=== PATIENT | female | born 1930 | race Caucasian/White ===

== ENCOUNTER 2016-10-25 09:28 | Emergency (ER) | payer OTHER ==
[~2016-10-25 09:28] MED LIST: CEL100 PO; CEL20 PO; ECO81 PO; HYZAAR PO; LEFLUNOMIDE PO; NOR5 PO; OSC PO; SYN15 PO; ZOC20 PO
[2016-10-25 11:14] LABS: BASOPHIL % 0.4 % (0-2); PLATELET COUNT 213 x10^3mcL (130-400)
[2016-10-25 11:35] LABS: ALBUMIN 3.5 g/dL (3.4-5.0); ALKALINE PHOSPHATASE 77 U/L (46-116); ALT/SGPT 25 U/L (14-59); AMYLASE 101 U/L (25-115); AST/SGOT 23 U/L (15-37); BILIRUBIN TOTAL 0.49 mg/dL (0.20-1.00); CALCIUM 8.7 mg/dL (8.5-10.1); CARBON DIOXIDE 32.7 mmol/L (21-32); CHLORIDE SERUM 104 mmol/L (98-107); CREATININE SERUM 1.1 mg/dL (0.6-1.0); LIPASE 138 IU/L (73-393); POTASSIUM SERUM 4.5 mmol/L (3.5-5.1); SODIUM SERUM 143 mmol/L (136-145); T4(THYROXINE) 9.1 ug/dL (4.7-13.3); TOTAL PROTEIN, SERUM 7.3 g/dL (6.4-8.2)
[2016-10-25 11:36] LABS: CHOLESTEROL 114 mg/dL (<200)
[2016-10-25 11:38] LABS: GLUCOSE SERUM 55 mg/dL (74-106)
[2016-10-25 11:49] LABS: UA SPECIFIC GRAVITY 1.015 (1.005-1.035); microscopic required? YES; urine erythrocyte NEGATIVE (NEGATIVE)
[2016-10-25 12:07] LABS: AMPHETAMINE QUAL UR NONE DETECTED (NEG <=1000)
[2016-10-25 13:23] VITALS: BP 118/76
== END 2016-10-25 13:23 | disposition home or self-care (01) ==
LOC: ED 09:28
PROVIDERS: Emergency Medicine
DX: E11.621 Type 2 diabetes mellitus with foot ulcer (principal); L97.519 Non-pressure chronic ulcer of other part of right foot with unspecified severity; E11.22 Type 2 diabetes mellitus with diabetic chronic kidney disease; I12.9 Hypertensive chronic kidney disease with stage 1 through stage 4 chronic kidney disease, or unspecified chronic kidney disease; N18.3 Chronic kidney disease, stage 3 (moderate); E78.00 Pure hypercholesterolemia, unspecified; I25.10 Atherosclerotic heart disease of native coronary artery without angina pectoris; K42.9 Umbilical hernia without obstruction or gangrene; Z88.8 Allergy status to other drugs, medicaments and biological substances
CPT/HCPCS: 80307; 82962; 83880; 90715; Q0092

== ENCOUNTER → 2016-11-21 | Outpatient (CLI) | payer OTHER ==
[2016-11-21 08:14] LABS: BASOPHIL % 0.3 % (0-2); PLATELET COUNT 265 x10^3mcL (130-400)
[2016-11-21 08:18] LABS: ALKALINE PHOSPHATASE 69 U/L (46-116); ALT/SGPT 22 U/L (14-59); AST/SGOT 28 U/L (15-37); BILIRUBIN TOTAL 0.48 mg/dL (0.20-1.00); CALCIUM 8.6 mg/dL (8.5-10.1); CARBON DIOXIDE 24.8 mmol/L (21-32); CHLORIDE SERUM 102 mmol/L (98-107); CREATININE SERUM 0.9 mg/dL (0.6-1.0); GLUCOSE SERUM 89 mg/dL (74-106); PHOSPHOROUS 3.5 mg/dL (2.5-4.9); POTASSIUM SERUM 3.4 mmol/L (3.5-5.1); SODIUM SERUM 138 mmol/L (136-145); TOTAL PROTEIN, SERUM 7.3 g/dL (6.4-8.2)
[2016-11-21 08:34] LABS: ALBUMIN 3.3 g/dL (3.4-5.0); CREATININE UR 82.3 mg/dL
== END | disposition home or self-care (01) ==
LOC: LB 07:15
PROVIDERS: Internal Medicine Nephrology
DX: I12.9 Hypertensive chronic kidney disease with stage 1 through stage 4 chronic kidney disease, or unspecified chronic kidney disease (principal); N18.3 Chronic kidney disease, stage 3 (moderate); E11.9 Type 2 diabetes mellitus without complications; E78.5 Hyperlipidemia, unspecified; E03.9 Hypothyroidism, unspecified
CPT/HCPCS: 83970

== ENCOUNTER → 2017-02-14 | Outpatient (CLI) | payer OTHER ==
[2017-02-14 08:09] LABS: PLATELET COUNT 230 x10^3mcL (130-400)
[2017-02-14 08:17] LABS: RED CELL DISTRIBUTION WIDTH 16.6 % (11.5-14.5)
[2017-02-14 08:39] LABS: ALBUMIN 3.4 g/dL (3.4-5.0); ALKALINE PHOSPHATASE 91 U/L (46-116); ALT/SGPT 32 U/L (14-59); AST/SGOT 34 U/L (15-37); BILIRUBIN TOTAL 0.23 mg/dL (0.20-1.00); CALCIUM 8.3 mg/dL (8.5-10.1); CARBON DIOXIDE 28.2 mmol/L (21-32); CHLORIDE SERUM 104 mmol/L (98-107); GLUCOSE SERUM 77 mg/dL (74-106); POTASSIUM SERUM 4.1 mmol/L (3.5-5.1); SODIUM SERUM 140 mmol/L (136-145); TOTAL PROTEIN, SERUM 7.5 g/dL (6.4-8.2)
[2017-02-14 09:01] LABS: UA SPECIFIC GRAVITY 1.025 (1.005-1.035); microscopic required? YES
[2017-02-14 09:02] LABS: urine erythrocyte NEGATIVE (NEGATIVE)
== END | disposition home or self-care (01) ==
LOC: LB 07:15
DX: I12.9 Hypertensive chronic kidney disease with stage 1 through stage 4 chronic kidney disease, or unspecified chronic kidney disease (principal); N18.3 Chronic kidney disease, stage 3 (moderate); E11.9 Type 2 diabetes mellitus without complications; E78.5 Hyperlipidemia, unspecified; E03.9 Hypothyroidism, unspecified

== ENCOUNTER → 2017-05-09 | Outpatient (CLI) | payer OTHER ==
[2017-05-09 08:19] LABS: BASOPHIL % 0.5 % (0-2); PLATELET COUNT 266 x10^3mcL (130-400)
[2017-05-09 08:21] LABS: RED CELL DISTRIBUTION WIDTH 15.5 % (11.5-14.5)
[2017-05-09 08:22] LABS: ALBUMIN 3.7 g/dL (3.4-5.0); ALKALINE PHOSPHATASE 69 U/L (46-116); ALT/SGPT 26 U/L (14-59); AST/SGOT 25 U/L (15-37); BILIRUBIN TOTAL 0.74 mg/dL (0.20-1.00); CALCIUM 8.8 mg/dL (8.5-10.1); CARBON DIOXIDE 32.4 mmol/L (21-32); CHLORIDE SERUM 101 mmol/L (98-107); CREATININE SERUM 0.9 mg/dL (0.6-1.0); GLUCOSE SERUM 68 mg/dL (74-106); POTASSIUM SERUM 3.6 mmol/L (3.5-5.1); SODIUM SERUM 138 mmol/L (136-145)
[2017-05-09 08:23] LABS: TOTAL PROTEIN, SERUM 8.3 g/dL (6.4-8.2)
[2017-05-09 08:40] LABS: UA SPECIFIC GRAVITY 1.015 (1.005-1.035); microscopic required? YES; urine erythrocyte TRACE (NEGATIVE)
== END | disposition home or self-care (01) ==
LOC: LB 07:11
DX: I12.9 Hypertensive chronic kidney disease with stage 1 through stage 4 chronic kidney disease, or unspecified chronic kidney disease (principal); N18.3 Chronic kidney disease, stage 3 (moderate); E11.9 Type 2 diabetes mellitus without complications; E78.5 Hyperlipidemia, unspecified; E03.9 Hypothyroidism, unspecified

== ENCOUNTER → 2017-08-02 | Outpatient (CLI) | payer OTHER ==
[2017-08-02 08:18] LABS: BASOPHIL % 0.4 % (0-2); PLATELET COUNT 297 x10^3mcL (130-400)
[2017-08-02 08:20] LABS: RED CELL DISTRIBUTION WIDTH 15.1 % (11.5-14.5)
[2017-08-02 11:39] LABS: ALBUMIN 3.8 g/dL (3.4-5.0); ALKALINE PHOSPHATASE 66 U/L (46-116); ALT/SGPT 32 U/L (14-59); AST/SGOT 26 U/L (15-37); BILIRUBIN TOTAL 0.57 mg/dL (0.20-1.00); CARBON DIOXIDE 31.5 mmol/L (21-32); CHLORIDE SERUM 102 mmol/L (98-107); CHOLESTEROL 142 mg/dL (<200); CREATININE SERUM 0.9 mg/dL (0.6-1.0); GLUCOSE SERUM 78 mg/dL (74-106); POTASSIUM SERUM 4.1 mmol/L (3.5-5.1); SODIUM SERUM 140 mmol/L (136-145); TOTAL PROTEIN, SERUM 8.2 g/dL (6.4-8.2); TRIGLYCERIDES 88 mg/dL (<150)
[2017-08-02 11:43] LABS: CHOLESTEROL/HDL RATIO 2.1; HDL CHOLESTEROL 69 mg/dL (40-60)
[2017-08-03 17:21] LABS: microalbumin:creatinine ratio 11.8 (0.0-30.0)
== END | disposition home or self-care (01) ==
LOC: LB 07:39
PROVIDERS: Internal Medicine Nephrology
DX: I12.9 Hypertensive chronic kidney disease with stage 1 through stage 4 chronic kidney disease, or unspecified chronic kidney disease (principal); N18.3 Chronic kidney disease, stage 3 (moderate); E78.5 Hyperlipidemia, unspecified; E03.9 Hypothyroidism, unspecified; E11.9 Type 2 diabetes mellitus without complications

== ENCOUNTER → 2017-10-03 | Outpatient (CLI) | payer OTHER ==
[2017-10-03 08:03] LABS: UA SPECIFIC GRAVITY 1.015 (1.005-1.035); microscopic required? YES; urine erythrocyte TRACE (NEGATIVE)
[2017-10-03 08:05] LABS: BASOPHIL % 0.5 % (0-2); PLATELET COUNT 306 x10^3mcL (130-400)
[2017-10-03 08:07] LABS: RED CELL DISTRIBUTION WIDTH 15.1 % (11.5-14.5)
[2017-10-03 08:32] LABS: ALBUMIN 3.4 g/dL (3.4-5.0); ALKALINE PHOSPHATASE 58 U/L (46-116); ALT/SGPT 23 U/L (14-59); AST/SGOT 23 U/L (15-37); BILIRUBIN TOTAL 0.5 mg/dL (0.20-1.00); CALCIUM 8.1 mg/dL (8.5-10.1); CARBON DIOXIDE 29.9 mmol/L (21-32); CHLORIDE SERUM 103 mmol/L (98-107); GLUCOSE SERUM 80 mg/dL (74-106); SODIUM SERUM 138 mmol/L (136-145); TOTAL PROTEIN, SERUM 7.9 g/dL (6.4-8.2)
[2017-10-04 13:19] LABS: CREATININE UR 61.3 mg/dL (Not Estab.); microalbumin:creatinine ratio 32.1 (0.0-30.0)
== END | disposition home or self-care (01) ==
LOC: LB 07:06
PROVIDERS: Internal Medicine Nephrology
DX: I12.9 Hypertensive chronic kidney disease with stage 1 through stage 4 chronic kidney disease, or unspecified chronic kidney disease (principal); N18.3 Chronic kidney disease, stage 3 (moderate); E11.9 Type 2 diabetes mellitus without complications; E78.5 Hyperlipidemia, unspecified; E03.9 Hypothyroidism, unspecified

== ENCOUNTER → 2018-01-09 | Outpatient (CLI) | payer OTHER ==
[2018-01-09 07:57] LABS: UA SPECIFIC GRAVITY 1.015 (1.005-1.035); microscopic required? YES; urine erythrocyte TRACE (NEGATIVE)
[2018-01-09 08:03] LABS: ALBUMIN 3.5 g/dL (3.4-5.0); ALKALINE PHOSPHATASE 100 U/L (46-116); ALT/SGPT 40 U/L (14-59); AST/SGOT 37 U/L (15-37); BILIRUBIN TOTAL 0.29 mg/dL (0.20-1.00); CALCIUM 8.6 mg/dL (8.5-10.1); CARBON DIOXIDE 28.2 mmol/L (21-32); CHLORIDE SERUM 103 mmol/L (98-107); CREATININE SERUM 1.1 mg/dL (0.6-1.0); GLUCOSE SERUM 89 mg/dL (74-106); POTASSIUM SERUM 4.3 mmol/L (3.5-5.1); SODIUM SERUM 138 mmol/L (136-145); TOTAL PROTEIN, SERUM 7.8 g/dL (6.4-8.2)
[2018-01-09 08:26] LABS: BASOPHIL % 0.6 % (0-2); PLATELET COUNT 333 x10^3mcL (130-400)
[2018-01-09 08:28] LABS: RED CELL DISTRIBUTION WIDTH 17.6 % (11.5-14.5)
== END | disposition home or self-care (01) ==
LOC: LB 07:16
DX: I12.9 Hypertensive chronic kidney disease with stage 1 through stage 4 chronic kidney disease, or unspecified chronic kidney disease (principal); N18.3 Chronic kidney disease, stage 3 (moderate); E11.9 Type 2 diabetes mellitus without complications; E78.5 Hyperlipidemia, unspecified; E03.9 Hypothyroidism, unspecified

== ENCOUNTER → 2018-04-25 | Outpatient (CLI) | payer OTHER ==
[2018-04-25 10:01] LABS: microscopic required? YES; urine erythrocyte TRACE (NEGATIVE)
[2018-04-25 10:14] LABS: BASOPHIL % 0.5 % (0-2); PLATELET COUNT 297 x10^3mcL (130-400); RED CELL DISTRIBUTION WIDTH 19.8 % (11.5-14.5)
[2018-04-25 10:34] LABS: ALBUMIN 3.5 g/dL (3.4-5.0); ALKALINE PHOSPHATASE 92 U/L (46-116); ALT/SGPT 31 U/L (14-59); AST/SGOT 27 U/L (15-37); BILIRUBIN TOTAL 0.38 mg/dL (0.20-1.00); CALCIUM 8.3 mg/dL (8.5-10.1); CARBON DIOXIDE 32.6 mmol/L (21-32); CHLORIDE SERUM 105 mmol/L (98-107); GLUCOSE SERUM 104 mg/dL (74-106); POTASSIUM SERUM 4.8 mmol/L (3.5-5.1); SODIUM SERUM 146 mmol/L (136-145)
[2018-04-25 16:56] LABS: CREATININE UR 110.9 mg/dL
[2018-04-27 09:19] LABS: CREATININE UR 53.6 mg/dL (Not Estab.)
== END | disposition home or self-care (01) ==
LOC: LB 04-03 09:20
PROVIDERS: Internal Medicine Nephrology
DX: I12.9 Hypertensive chronic kidney disease with stage 1 through stage 4 chronic kidney disease, or unspecified chronic kidney disease (principal); N18.3 Chronic kidney disease, stage 3 (moderate); E11.9 Type 2 diabetes mellitus without complications; E78.5 Hyperlipidemia, unspecified; E03.9 Hypothyroidism, unspecified

== ENCOUNTER → 2018-07-10 | Outpatient (CLI) | payer OTHER ==
[2018-07-10 07:43] LABS: microscopic required? YES; urine erythrocyte 1+ (NEGATIVE)
[2018-07-10 07:46] LABS: BASOPHIL % 0.5 % (0-2); PLATELET COUNT 292 x10^3mcL (130-400); RED CELL DISTRIBUTION WIDTH 17.3 % (11.5-14.5)
[2018-07-10 08:16] LABS: ALBUMIN 3.6 g/dL (3.4-5.0); ALKALINE PHOSPHATASE 87 U/L (46-116); ALT/SGPT 27 U/L (14-59); AST/SGOT 22 U/L (15-37); BILIRUBIN TOTAL 0.3 mg/dL (0.20-1.00); CALCIUM 8.8 mg/dL (8.5-10.1); CHLORIDE SERUM 100 mmol/L (98-107); CHOLESTEROL 140 mg/dL (<200); CREATININE SERUM 1.1 mg/dL (0.6-1.0); GLUCOSE SERUM 91 mg/dL (74-106); SODIUM SERUM 135 mmol/L (136-145); TOTAL PROTEIN, SERUM 8.1 g/dL (6.4-8.2); TRIGLYCERIDES 121 mg/dL (<150)
[2018-07-10 08:19] LABS: CHOLESTEROL/HDL RATIO 2.1; HDL CHOLESTEROL 68 mg/dL (40-60)
[2018-07-11 17:11] LABS: CREATININE UR 79.6 mg/dL (Not Estab.)
== END | disposition home or self-care (01) ==
LOC: LB 07:04
DX: I12.9 Hypertensive chronic kidney disease with stage 1 through stage 4 chronic kidney disease, or unspecified chronic kidney disease (principal); N18.3 Chronic kidney disease, stage 3 (moderate); E11.9 Type 2 diabetes mellitus without complications; E78.5 Hyperlipidemia, unspecified; E03.9 Hypothyroidism, unspecified

== ENCOUNTER → 2018-09-11 | Outpatient (CLI) | payer OTHER ==
[2018-09-11 08:00] LABS: BASOPHIL % 0.4 % (0-2); PLATELET COUNT 300 x10^3mcL (130-400)
[2018-09-11 08:02] LABS: RED CELL DISTRIBUTION WIDTH 17.3 % (11.5-14.5)
[2018-09-11 08:09] LABS: UA SPECIFIC GRAVITY 1.015 (1.005-1.035); microscopic required? YES; urine erythrocyte TRACE (NEGATIVE)
[2018-09-11 09:48] LABS: ALBUMIN 3.7 g/dL (3.4-5.0); ALKALINE PHOSPHATASE 98 U/L (46-116); ALT/SGPT 28 U/L (14-59); AST/SGOT 31 U/L (15-37); BILIRUBIN TOTAL 0.4 mg/dL (0.20-1.00); CALCIUM 8.8 mg/dL (8.5-10.1); CARBON DIOXIDE 34.1 mmol/L (21-32); CHLORIDE SERUM 100 mmol/L (98-107); CREATININE SERUM 1.2 mg/dL (0.6-1.0); GLUCOSE SERUM 93 mg/dL (74-106); POTASSIUM SERUM 4.1 mmol/L (3.5-5.1); SODIUM SERUM 138 mmol/L (136-145)
[2018-09-11 09:57] LABS: TOTAL PROTEIN, SERUM 8.3 g/dL (6.4-8.2)
[2018-09-11 10:09] LABS: CHOLESTEROL 139 mg/dL (<200); CHOLESTEROL/HDL RATIO 2.4; HDL CHOLESTEROL 58 mg/dL (40-60); TRIGLYCERIDES 152 mg/dL (<150)
== END | disposition home or self-care (01) ==
LOC: LB 07:16
PROVIDERS: Internal Medicine Nephrology
DX: I12.9 Hypertensive chronic kidney disease with stage 1 through stage 4 chronic kidney disease, or unspecified chronic kidney disease (principal); N18.3 Chronic kidney disease, stage 3 (moderate); E11.9 Type 2 diabetes mellitus without complications; E78.5 Hyperlipidemia, unspecified; E03.9 Hypothyroidism, unspecified; E11.51 Type 2 diabetes mellitus with diabetic peripheral angiopathy without gangrene

== ENCOUNTER → 2018-12-10 | Outpatient (CLI) | payer OTHER ==
[2018-12-10 08:09] LABS: PLATELET COUNT 294 x10^3mcL (130-400); RED CELL DISTRIBUTION WIDTH 17.2 % (11.5-14.5)
[2018-12-10 08:26] LABS: CALCIUM 8.8 mg/dL (8.5-10.1); CARBON DIOXIDE 30.9 mmol/L (21-32); CHLORIDE SERUM 104 mmol/L (98-107); CREATININE SERUM 1.1 mg/dL (0.6-1.0); GLUCOSE SERUM 115 mg/dL (74-106); POTASSIUM SERUM 4.1 mmol/L (3.5-5.1); SODIUM SERUM 143 mmol/L (136-145)
[2018-12-10 08:31] LABS: ALBUMIN 3.6 g/dL (3.4-5.0); ALKALINE PHOSPHATASE 77 U/L (46-116); ALT/SGPT 27 U/L (14-59); AST/SGOT 21 U/L (15-37); BILIRUBIN TOTAL 0.6 mg/dL (0.20-1.00); TOTAL PROTEIN, SERUM 7.9 g/dL (6.4-8.2)
[2018-12-10 09:18] LABS: UA SPECIFIC GRAVITY 1.025 (1.005-1.035); microscopic required? YES; urine erythrocyte 1+ (NEGATIVE)
[2018-12-11 10:07] LABS: CREATININE UR 116.9 mg/dL (Not Estab.)
== END | disposition home or self-care (01) ==
LOC: LB 06:57
PROVIDERS: Internal Medicine Nephrology
DX: I12.9 Hypertensive chronic kidney disease with stage 1 through stage 4 chronic kidney disease, or unspecified chronic kidney disease (principal); N18.3 Chronic kidney disease, stage 3 (moderate); E11.9 Type 2 diabetes mellitus without complications; E78.5 Hyperlipidemia, unspecified; E03.9 Hypothyroidism, unspecified; E11.51 Type 2 diabetes mellitus with diabetic peripheral angiopathy without gangrene

== ENCOUNTER → 2018-12-28 | Outpatient (CLI) | payer OTHER | END | disposition home or self-care (01) | LOC: RD 08:52 | DX: E11.621 Type 2 diabetes mellitus with foot ulcer (principal); M21.611 Bunion of right foot ==

== ENCOUNTER → 2019-07-26 | Outpatient (CLI) | payer OTHER ==
[2019-07-26 08:06] LABS: BASOPHIL % 1.1 % (0-2); PLATELET COUNT 253 x10^3mcL (130-400)
[2019-07-26 08:07] LABS: microscopic required? YES; urine erythrocyte TRACE (NEGATIVE)
[2019-07-26 08:11] LABS: RED CELL DISTRIBUTION WIDTH 15.1 % (11.5-14.5)
[2019-07-26 08:13] LABS: ALKALINE PHOSPHATASE 78 U/L (46-116); ALT/SGPT 28 U/L (14-59); AST/SGOT 18 U/L (15-37); BILIRUBIN TOTAL 0.33 mg/dL (0.20-1.00); CALCIUM 8.6 mg/dL (8.5-10.1); CHLORIDE SERUM 101 mmol/L (98-107); CREATININE SERUM 1.1 mg/dL (0.6-1.0); GLUCOSE SERUM 98 mg/dL (74-106); SODIUM SERUM 137 mmol/L (136-145); TOTAL PROTEIN, SERUM 7.5 g/dL (6.4-8.2)
[2019-07-26 08:17] LABS: ALBUMIN 3.2 g/dL (3.4-5.0)
[2019-07-26 09:22] LABS: CREATININE UR 115.9 mg/dL
== END | disposition home or self-care (01) ==
LOC: LB 07:07
DX: I12.9 Hypertensive chronic kidney disease with stage 1 through stage 4 chronic kidney disease, or unspecified chronic kidney disease (principal); N18.3 Chronic kidney disease, stage 3 (moderate); E11.9 Type 2 diabetes mellitus without complications; E78.5 Hyperlipidemia, unspecified; E03.9 Hypothyroidism, unspecified; E11.51 Type 2 diabetes mellitus with diabetic peripheral angiopathy without gangrene

== ENCOUNTER → 2019-09-05 | Outpatient (CLI) | payer OTHER | END | disposition home or self-care (01) | LOC: RD 10:33 | DX: E11.621 Type 2 diabetes mellitus with foot ulcer (principal) ==